=== PATIENT | female | born 1960 | race Two or more races ===

== ENCOUNTER → 2017-11-04 | Outpatient (CLI) | payer MEDICAID | LOC: BRMIMAGING 14:27 | PROVIDERS: ATTEND Internal Medicine | DX: M19.042 Primary osteoarthritis, left hand (principal); M19.041 Primary osteoarthritis, right hand; M19.072 Primary osteoarthritis, left ankle and foot; M19.071 Primary osteoarthritis, right ankle and foot | CPT/HCPCS: 73130-PO; 73630-PO ==

== ENCOUNTER → 2017-11-22 | Outpatient (CLI) | payer MEDICAID | LOC: BRMIMAGING 11:15 | PROVIDERS: ATTEND Internal Medicine | DX: R76.12 Nonspecific reaction to cell mediated immunity measurement of gamma interferon antigen response without active tuberculosis (principal) | CPT/HCPCS: 71046-PO ==